=== PATIENT | female | born 2000 | race American Indian/Alaskan Native ===

== ENCOUNTER 2020-01-07 03:12 | Outpatient (CLI) | payer OTHER ==
[2020-01-07 03:50] VITALS: BP 118/90
== END 2020-01-07 03:59 | disposition left against medical advice (07) ==
LOC: TRG 03:12 → APU 03:22 → TRG 03:59
PROVIDERS: ATTEND Obstetrics & Gynecology
DX: O36.8130 Decreased fetal movements, third trimester, not applicable or unspecified (principal); Z3A.39 39 weeks gestation of pregnancy
CPT/HCPCS: 59025